=== PATIENT | male | born 1980 | race Caucasian/White ===

== ENCOUNTER 2016-08-21 20:49 | Emergency (ER) | payer SELFPAY ==
[2016-08-21] MEDS ORDERED: Benzonatate 100 MG CAP ONE (21:23)
[2016-08-21] MEDS ORDERED: Azithromycin 250 MG TAB ONE (21:23)
--- NOTE | 2016-08-21 21:41 | ERRECORD ---
[facility] EMERGENCY RECORD HPI COUGH (21:23 LLDO) CHIEF COMPLAINT: Patient presents for evaluation of cough, productive of yellow sputum, Patient presents for evaluation of one month or a bit more. headaches. no sore throat. low grade fever. no chest pain. HISTORIAN: History provided by patient. LOCATION: Symptoms are generalized. QUALITY: Denies tightness, Denies wheezing. SEVERITY: Maximum severity of symptoms moderate, Currently symptoms are moderate. TIME COURSE: Gradual onset of symptoms, There has been no change in the patient's symptoms over time, are constant. ASSOCIATED WITH: Associated symptoms reviewed, No associated chest pain, No associated chills, No associated diarrhea, No associated diaphoresis, Associated with dyspnea on exertion, No associated fever, No associated hyperventilation, No associated increased inhaler use, No associated nausea, No associated orthopnea, No associated palpitations, No associated paroxysmal nocturnal dyspnea, No associated peripheral edema, No associated pleuritic symptoms, No associated stridor, Associated with upper respiratory infection, No associated wheezing, No associated weakness. RELIEVED BY: Patient's condition relieved by rest. ROS CONSTITUTIONAL: Historian reports fatigue. (21:25 LLDO) EYES: Negative eye review of systems, Historian denies eye pain, denies eye redness, denies eye discharge. (21:30 LLDO) ENT: Negative ears, nose, throat review of systems, Historian denies otalgia, denies rhinorrhea, denies sinus pain, denies sore throat. (21:30 LLDO) CARDIOVASCULAR: Historian reports dyspnea on exertion. (21:25 LLDO) RESPIRATORY: Historian reports cough, reports sputum. described as thick, yellow, Historian denies stridor, denies wheezing. (21:25 LLDO) GI: Negative gastrointestinal review of systems, Historian denies abdominal pain, denies constipation, denies diarrhea, denies nausea, denies vomiting. (21:30 LLDO) MUSCULOSKELETAL: Historian reports myalgias. (21:25 LLDO) NEUROLOGIC: Historian denies confusion, denies dizziness, denies dysphasia, denies focal weakness, denies gait changes, reports headache, denies irritability. (21:25 LLDO) HEMO/LYMPHATIC: Normal hematologic/lymphatic system review, Historian denies abnormal blood clotting, denies gum bleeding, denies petechiae. (21:30 LLDO) ALLERGIC/IMMUNOLOGIC: Normal allergy/immunologic system review, Historian denies eczema, denies environmental allergies, denies food allergies. (21:30 LLDO) PSYCHIATRIC: Negative psychiatric review of systems, Historian &a-1R&a+25V*p+0X*[id number]*c202B*c15G*c2P*p-0X&a-25V&a+1R Name: Yayo Diaz Jr : 1980 M36 MedRec: [id number] AcctNum: [id number] Prepared: [facility] Aug 21, 2016 21:39 by Interface Page 1 of 4 pMD [facility] EMERGENCY RECORD denies alcohol abuse, denies anxiety, denies depression, denies drug abuse, denies hallucinations. (21:30 LLDO) NOTES: All systems reviewed, negative except as described above. (21:25 LLDO) PAST MEDICAL HISTORY MEDICAL HISTORY: No past medical history, Flu vaccine not up to date, Tetanus not up to date, Pneumococcal vaccine not up to date. (21:03 CJEF) MALE SURGICAL HISTORY: Patient has no surgical history. (21:03 CJEF) PSYCHIATRIC HISTORY: Psychiatric history includes, anxiety, bipolar disorder. (21:03 CJEF) SOCIAL HISTORY: Patient drinks socially, every week, Patient denies drug use, Patient currently uses tobacco, smokes cigarettes, daily, Patient smokes 2 packs per day. (21:03 CJEF) NOTES: Nursing records reviewed, Agree with nursing records, Medication list reviewed. (21:30 LLDO) KNOWN ALLERGIES NKDA CURRENT MEDICATIONS (21:01 CJEF) None VITAL SIGNS VITAL SIGNS: Pulse: 79, Resp: 18, Temp: 97.3 (Tympanic), Pain: 7, O2 sat: 97 on Room Air, Time: 08/21/2016 20:58. (20:58 CJEF) BP: 113/78, Time: 08/21/2016 21:01. (21:01 CJEF) PHYSICAL EXAM CONSTITUTIONAL: Vital Signs Reviewed, Patient afebrile, Pulse normal, Blood pressure normal, Respiratory rate normal, Normal pulse oximetry, Patient appears, uncomfortable, Patient appears, in moderate pain distress, Patient alert and oriented to person, place and time, Nursing notes reviewed. (21:28 LLDO) HEAD: Head exam normal, Head exam included findings of head atraumatic, normocephalic. (21:30 LLDO) EYES: Eye exam normal, Eye exam included findings of eyelids normal to inspection, Pupils equally round and reactive to light, Extraocular muscles intact. (21:30 LLDO) ENT: ENT exam normal, Ear exam normal, Nose exam normal. (21:30 LLDO) NECK: Neck exam included findings of normal range of motion, Trachea midline, Thyroid normal, no meningeal signs, no cervical adenopathy. (21:28 LLDO) RESPIRATORY CHEST: Respiratory exam included findings of no respiratory distress, No wheezing, Rales present, Chest &a-1R&a+25V*p+0X*[id number]*c202B*c15G*c2P*p-0X&a-25V&a+1R Name: Yayo Diaz Jr : 1980 M36 MedRec: [id number] AcctNum: [id number] Prepared: [facility] Aug 21, 2016 21:39 by Interface Page 2 of 4 pMD [facility] EMERGENCY RECORD exam included findings of chest movement symmetrical, Chest expansion equal, no tenderness, RALES MOD AND SCATTERED. (21:28 LLDO) CARDIOVASCULAR: Cardiovascular exam included findings of heart rate regular rate and rhythm, Heart sounds normal. (21:28 LLDO) ABDOMEN MALE: Abdominal exam normal, Abdominal exam included findings of abdomen nontender, Bowel sounds normal, no peritoneal signs. (21:30 LLDO) BACK: Back exam normal, Back exam included findings of normal inspection, range of motion normal. (21:30 LLDO) UPPER EXTREMITY: Upper extremity exam normal, Upper extremity exam included findings of inspection normal, Range of motion normal. (21:30 LLDO) LOWER EXTREMITY: Lower extremity exam normal, Lower extremity exam included findings of inspection normal, Range of motion normal. (21:30 LLDO) NEURO: Neuro exam normal, Neuro exam findings include patient oriented to person, place and time, Speech normal, Booker coma scale 15. (21:30 LLDO) SKIN: Skin exam normal, Skin exam included findings of skin warm, dry, and normal in color, no rash. (21:30 LLDO) PSYCHIATRIC: Psychiatric exam normal, Psychiatric exam included findings of patient oriented to person place and time, Normal affect, Judgment normal. (21:30 LLDO) MEDICATION ADMINISTRATION SUMMARY Drug Name: Zithromax oral, Dose Ordered: 500 mg, Route: Oral, Status: Given, Time: 21:25 08/21/2016, Drug Name: Brianna Estes, Dose Ordered: 200 mg, Route: Oral, Status: Given, Time: 21:08/21/2016, Detailed record available in Medication Service section. PROBLEM LIST No recorded problems DIAGNOSIS (21:20 LLDO) FINAL: PRIMARY: Acute bronchitis. PRESCRIPTION (21:22 LLDO) ibuprofen: TABLET : 800 mg : ORAL : Quantity: 1 Unit: tab(s) Route: ORAL Schedule: 3 times a day Dispense: 60 Unit: tab(s) May substitute. Refills: 1 . NOTES: No Refills. Phenergan DM: SYRUP : : ORAL : Quantity: 1-2 Unit: teaspoon Route: ORAL Schedule: every 4 hours prn Dispense: 180 Unit: mL May substitute. Refills: No Refills . NOTES: ^s=No Refills No Refills. &a-1R&a+25V*p+0X*b2293D*c202B*c15G*c2P*p-0X&a-25V&a+1R Name: Yayo Diaz Jr : 1980 M36 MedRec: [id number] AcctNum: [id number] Prepared: [facility] Aug 21, 2016 21:39 by Interface Page 3 of 4 pMD [facility] EMERGENCY RECORD Zithromax Z-Laureano: CAPSULE (HARD, SOFT, ETC.) : 250 mg : ORAL : Quantity: * Unit: Route: ORAL Schedule: See Notes Dispense: 1PK May substitute. Refills: No Refills . NOTES: TAKE DIRECTED ON PACKAGE No Refills. DISPOSITION PATIENT: Disposition Type: Discharge, Disposition: *Discharge Home. (21:20 LLDO) Patient left the department. (21:36 [facility]) [place]: VIOLET=MELISSA Rapp, Nenita LLOYD=MD Vania, Nate &a-1R&a+25V*p+0X*[id number]*c202B*c15G*c2P*p-0X&a-25V&a+1R Name: Yayo Diaz Jr : 1980 M36 MedRec: [id number] AcctNum: [id number] Prepared: [facility] Aug 21, 2016 21:39 by Interface Page 4 of 4 pMD MTDD
--- NOTE | 2016-08-21 21:47 | PICIS ---
[facility] EMERGENCY RECORD TRIAGE (ThuAug 21, 2016 21:01 CJ) TRIAGE NOTES: PT REPORTS THAT X3 KIDS HAVE BRONCHITIS AND NOW PT THINKS HE HAS IT NOW TOO. PT REPORTS "LUNGS HURTING", NOSE SNIFFLING, AND COUGHING THAT STARTED APPROX X1 MONTH AGO. PT STATES THAT HE WAS BEING A "HARD ASS" AND DID NOT WANT TO COME TO THE ER. PT STATES IT CONTINUED AND NOW CAME FOR EVAL. (ThuAug 21, 2016 21:01 CJEF) PATIENT: NAME: Yayo Diaz Jr, AGE: 36, GENDER: male, : Thu1980, TIME OF GREET: ThuAug 21, 2016 20:50, PREFERRED LANGUAGE: Indonesian, ETHNICITY: Not or , ECODE BILLING MAP: [facility], SSN: [id number], Zip Code: [address], KG WEIGHT: 86.18, PHONE: , , , PERSON ID: [id number], PCP: NONE. (ThuAug 21, 2016 21:01 CJEF) COMPLAINT: COUGHING/FEVER/LUNGS HURT. (ThuAug 21, 2016 21:01 CJEF) ADMISSION: URGENCY: 4 Non Urgent, ADMISSION SOURCE: Home, TRANSPORT: Walk-in, BED: TRIAGE. (ThuAug 21, 2016 21:01 CJEF) ASSESSMENT: Assessment: COUGING, RUNNY NOSE, CONGESTION, BACK PAIN. (21:03 CJEF) PAIN: Patient complains of pain described as, Location UPPER BACK. (21:03 CJEF) IMMUNIZATIONS: Flu vaccine not up to date, Tetanus not up to date, Pneumococcal vaccine not up to date. (21:03 CJEF) SIRS SCORING: Heart Rate 55-109 (0), Temp range 96.8-101.1 (0), respiratory rate 12-24 (0), Mental Status altered: no (0), Infection or Suspected Infection: No. (21:03 CJEF) TRIAGE SCREENING: Patient denies suicidal ideation, Patient denies presence of domestic violence. (21:03 CJEF) PROVIDERS: TRIAGE NURSE: Nenita Rapp RN. (ThuAug 21, 2016 21:01 CJEF) VITAL SIGNS: Pulse 79, Resp 18, Temp 97.3, (Tympanic), Pain 7, O2 Sat 97, on Room Air, Time 08/21/2016 20:58. (20:58 CJEF) BP 113/78, Time 08/21/2016 21:01. (21:01 CJEF) KNOWN ALLERGIES NKDA CURRENT MEDICATIONS (21: EF) None VITAL SIGNS VITAL SIGNS: Pulse: 79, Resp: 18, Temp: 97.3 (Tympanic), Pain: 7, O2 sat: 97 on Room Air, Time: 08/21/2016 20:58. (20:58 CJEF) BP: 113/78, Time: 08/21/2016 21:01. (21: [facility]) NURSING ASSESSMENT: ENT (21:03 [facility]) CONSTITUTIONAL: Complex assessment performed, Patient arrives ambulatory, Gait steady, History obtained from patient, Patient &a-1R&a+25V*p+0X*[id number]*c202B*c15G*c2P*p-0X&a-25V&a+1R Name: Yayo Diaz Jr : 1980 M36 MedRec: [id number] AcctNum: [id number] Prepared: Brenda Aug 21, 2016 21:45 by Interface Page 1 of 7 pMD [facility] EMERGENCY RECORD appears comfortable, Patient cooperative, Patient alert, Oriented to person, place and time, Skin warm, Skin dry, Skin normal in color, Mucous membranes pink, Mucous membranes moist, Patient is well-groomed, PT REPORTS THAT X3 KIDS HAVE BRONCHITIS AND NOW PT THINKS HE HAS IT NOW TOO. PT REPORTS "LUNGS HURTING", NOSE SNIFFLING, AND COUGHING THAT STARTED APPROX X1 MONTH AGO. PT STATES THAT HE WAS BEING A "HARD ASS" AND DID NOT WANT TO COME TO THE ER. PT STATES IT CONTINUED AND NOW CAME FOR EVAL. PT REPORTS UPPER BACK PAIN. PAIN: aching pain, UPPER BACK, on a scale 0-10 patient rates pain as 7. ENT: Ear assessment findings include ear normal to inspection, Nasal assessment findings include nose normal to inspection, Discharge, thin, yellow, from bilateral nare, Mouth and throat assessment findings include mouth inspection normal, no associated fever. RESPIRATORY/CHEST: Breath sounds clear, Respiratory assessment findings include respiratory effort easy, Respirations regular, Conversing normally, Neck and chest exam findings include trachea midline, Chest expansion equal, Chest movement symmetrical, no signs of distress, Associated with cough, productive of, clear sputum, COUGING INDUCED VOMITING, no associated fever. NOTES: Patient tolerated procedure well. SAFETY: Side rails up, Cart/Stretcher in lowest position, Family at bedside, Call light within reach, Hospital ID band on. NURSING PROCEDURE: DISCHARGE NOTE (21:36 [facility]) DISCHARGE: Patient discharged to home, ambulating without assistance, driving self, unaccompanied, Summary of Care printed/ provided, Patient requested and was provided an electronic copy of Discharge Instructions, Transition record given to patient, Discharge instructions given to patient, Simple or moderate discharge teaching performed, Prescriptions given and instructions on side effects given, Medication reconciliation form given, Above person(s) verbalized understanding of discharge instructions and follow-up care, Patient treated and evaluated by physician. BELONGINGS: Belongings remain with patient. NOTES: Patient tolerated procedure well. SAFETY: Side rails up, Cart/Stretcher in lowest position, Family at bedside, Call light within reach, Hospital ID band on. NURSING PROCEDURE: NURSE NOTES (21:26 [facility]) NURSES NOTES: Patient in no apparent distress, Patient resting quietly, Notes: PT RESTING IN BED QUIETLY WITH NO DISTRESS NOTED. PT DENIES ANY NEEDS. MEDICATION ADMINISTRATION SUMMARY Drug Name: Zithromax oral, Dose Ordered: 500 mg, Route: Oral, Status: Given, Time: 21:25 08/21/2016, &a-1R&a+25V*p+0X*d3045P*c202B*c15G*c2P*p-0X&a-25V&a+1R Name: Yayo Diaz Jr : 1980 M36 MedRec: [id number] AcctNum: [id number] Prepared: Brenda Aug 21, 2016 21:45 by Interface Page 2 of 7 pMD [facility] EMERGENCY RECORD Drug Name: Brianna Estes, Dose Ordered: 200 mg, Route: Oral, Status: Given, Time: 21:25 08/21/2016, Detailed record available in Medication Service section. MEDICATION SERVICE (21:25 [facility]) Brianna Estes: Order: Brianna Estes (benzonatate) - Dose: 200 mg : Oral Schedule: Now Ordered by: Nate Caro MD Entered by: Nate Caro MD [facility] Aug 21, 2016 21:19 Documented as given by: Nenita Rapp RN [facility] Aug 21, 2016 21:25 Patient, Medication, Dose, Route and Time verified prior to administration. Amount given: 200mg, Site: Medication administered P.O., Mouth check performed after administration of medication, Patient appears Awake and alert- acceptable, Correct patient, time, route, dose and medication confirmed prior to administration, Patient advised of actions and side-effects prior to administration, Allergies confirmed and medications reviewed prior to administration, Patient tolerated procedure well, Patient in position of comfort, Side rails up, Cart in lowest position, Family at bedside. Zithromax oral: Order: Zithromax oral (azithromycin) - Dose: 500 mg : Oral Schedule: Now Ordered by: Nate Caro MD Entered by: Nate Caro MD [facility] Aug 21, 2016 21:19 Documented as given by: Nenita Rapp RN [facility] Aug 21, 2016 21:25 Patient, Medication, Dose, Route and Time verified prior to administration. Amount given: 500mg, Site: Medication administered P.O., Mouth check performed after administration of medication, Patient appears Awake and alert- acceptable, Correct patient, time, route, dose and medication confirmed prior to administration, Patient advised of actions and side-effects prior to administration, Allergies confirmed and medications reviewed prior to administration, Patient tolerated procedure well, Patient in position of comfort, Side rails up, Cart in lowest position, Family at bedside. HPI COUGH (21:23 [facility]LDO) CHIEF COMPLAINT: Patient presents for evaluation of cough, productive of yellow sputum, Patient presents for evaluation of one month or a bit more. headaches. no sore throat. low grade fever. no chest pain. HISTORIAN: History provided by patient. LOCATION: Symptoms are generalized. QUALITY: Denies tightness, Denies wheezing. SEVERITY: Maximum severity of symptoms moderate, Currently symptoms are moderate. TIME COURSE: Gradual onset of symptoms, There has been no change in the patient's symptoms over time, are constant. ASSOCIATED WITH: Associated symptoms &a-1R&a+25V*p+0X*k8836D*c202B*c15G*c2P*p-0X&a-25V&a+1R Name: [place] Jr, Yayo R : 1980 M36 MedRec: [id number] AcctNum: [id number] Prepared: Brenda Aug 21, 2016 21:45 by Interface Page 3 of 7 pMD [facility] EMERGENCY RECORD reviewed, No associated chest pain, No associated chills, No associated diarrhea, No associated diaphoresis, Associated with dyspnea on exertion, No associated fever, No associated hyperventilation, No associated increased inhaler use, No associated nausea, No associated orthopnea, No associated palpitations, No associated paroxysmal nocturnal dyspnea, No associated peripheral edema, No associated pleuritic symptoms, No associated stridor, Associated with upper respiratory infection, No associated wheezing, No associated weakness. RELIEVED BY: Patient's condition relieved by rest. ROS CONSTITUTIONAL: Historian reports fatigue. (21:25 LLDO) EYES: Negative eye review of systems, Historian denies eye pain, denies eye redness, denies eye discharge. (21:30 LLDO) ENT: Negative ears, nose, throat review of systems, Historian denies otalgia, denies rhinorrhea, denies sinus pain, denies sore throat. (21:30 LLDO) CARDIOVASCULAR: Historian reports dyspnea on exertion. (21:25 LLDO) RESPIRATORY: Historian reports cough, reports sputum. described as thick, yellow, Historian denies stridor, denies wheezing. (21:25 LLDO) GI: Negative gastrointestinal review of systems, Historian denies abdominal pain, denies constipation, denies diarrhea, denies nausea, denies vomiting. (21:30 LLDO) MUSCULOSKELETAL: Historian reports myalgias. (21:25 [facility]O) NEUROLOGIC: Historian denies confusion, denies dizziness, denies dysphasia, denies focal weakness, denies gait changes, reports headache, denies irritability. (21:25 LLDO) HEMO/LYMPHATIC: Normal hematologic/lymphatic system review, Historian denies abnormal blood clotting, denies gum bleeding, denies petechiae. (21:30 [facility]O) ALLERGIC/IMMUNOLOGIC: Normal allergy/immunologic system review, Historian denies eczema, denies environmental allergies, denies food allergies. (21:30 LLDO) PSYCHIATRIC: Negative psychiatric review of systems, Historian denies alcohol abuse, denies anxiety, denies depression, denies drug abuse, denies hallucinations. (21:30 LLDO) NOTES: All systems reviewed, negative except as described above. (21:25 LLDO) PAST MEDICAL HISTORY MEDICAL HISTORY: No past medical history, Flu vaccine not up to date, Tetanus not up to date, Pneumococcal vaccine not up to date. (21:03 CJEF) MALE SURGICAL HISTORY: Patient has no surgical history. (21:03 CJEF) PSYCHIATRIC HISTORY: Psychiatric history includes, &a-1R&a+25V*p+0X*g6054N*c202B*c15G*c2P*p-0X&a-25V&a+1R Name: Yayo Diaz Jr : 1980 M36 MedRec: [id number] AcctNum: [id number] Prepared: Brenda Aug 21, 2016 21:45 by Interface Page 4 of 7 pMD [facility] EMERGENCY RECORD anxiety, bipolar disorder. (21:03 CJEF) SOCIAL HISTORY: Patient drinks socially, every week, Patient denies drug use, Patient currently uses tobacco, smokes cigarettes, daily, Patient smokes 2 packs per day. (21:03 CJEF) NOTES: Nursing records reviewed, Agree with nursing records, Medication list reviewed. (21:30 L[facility]) PHYSICAL EXAM CONSTITUTIONAL: Vital Signs Reviewed, Patient afebrile, Pulse normal, Blood pressure normal, Respiratory rate normal, Normal pulse oximetry, Patient appears, uncomfortable, Patient appears, in moderate pain distress, Patient alert and oriented to person, place and time, Nursing notes reviewed. (21:28 LLDO) HEAD: Head exam normal, Head exam included findings of head atraumatic, normocephalic. (21:30 LLDO) EYES: Eye exam normal, Eye exam included findings of eyelids normal to inspection, Pupils equally round and reactive to light, Extraocular muscles intact. (21:30 LLDO) ENT: ENT exam normal, Ear exam normal, Nose exam normal. (21:30 LLDO) NECK: Neck exam included findings of normal range of motion, Trachea midline, Thyroid normal, no meningeal signs, no cervical adenopathy. (21:28 LLDO) RESPIRATORY CHEST: Respiratory exam included findings of no respiratory distress, No wheezing, Rales present, Chest exam included findings of chest movement symmetrical, Chest expansion equal, no tenderness, RALES MOD AND SCATTERED. (21:28 LLDO) CARDIOVASCULAR: Cardiovascular exam included findings of heart rate regular rate and rhythm, Heart sounds normal. (21:28 LLDO) ABDOMEN MALE: Abdominal exam normal, Abdominal exam included findings of abdomen nontender, Bowel sounds normal, no peritoneal signs. (21:30 LLDO) BACK: Back exam normal, Back exam included findings of normal inspection, range of motion normal. (21:30 LLDO) UPPER EXTREMITY: Upper extremity exam normal, Upper extremity exam included findings of inspection normal, Range of motion normal. (21:30 LLDO) LOWER EXTREMITY: Lower extremity exam normal, Lower extremity exam included findings of inspection normal, Range of motion normal. (21:30 LLDO) NEURO: Neuro exam normal, Neuro exam findings include patient oriented to person, place and time, Speech normal, [place] coma scale 15. (21:30 LLDO) SKIN: Skin exam normal, Skin exam included findings of skin warm, dry, and normal in color, no rash. (21:30 LLDO) PSYCHIATRIC: Psychiatric exam normal, Psychiatric exam included findings of patient oriented to person place and time, Normal affect, Judgment normal. (21:30 LLDO) &a-1R&a+25V*p+0X*j5290X*c202B*c15G*c2P*p-0X&a-25V&a+1R Name: Yayo Diaz Jr : 1980 M36 MedRec: [id number] AcctNum: [id number] Prepared: ThuAug 21, 2016 21:45 by Interface Page 5 of 7 D [facility] EMERGENCY RECORD EVENTS TRANSFER: Triage to Emergency Triage. (ThuAug 21, 2016 21:01 [facility]) Emergency Triage to Main ED -03. (21:03 CJ) Removed from Emergency Main ED -03. (21:36 CJEF) PROBLEM LIST No recorded problems DIAGNOSIS (21:20 LLDO) FINAL: PRIMARY: Acute bronchitis. DISPOSITION PATIENT: Disposition Type: Discharge, Disposition: *Discharge Home. (21:20 LLDO) Patient left the department. (21:36 CJ) INSTRUCTION (21:23 LLDO) FOLLOWUP: Follow up with Primary Care Physician as needed. SPECIAL: Follow-up with your PCP. PRESCRIPTION (21:22 [facility]LDO) ibuprofen: TABLET : 800 mg : ORAL : Quantity: 1 Unit: tab(s) Route: ORAL Schedule: 3 times a day Dispense: 60 Unit: tab(s) May substitute. Refills: 1 . NOTES: No Refills. Phenergan DM: SYRUP : : ORAL : Quantity: 1-2 Unit: teaspoon Route: ORAL Schedule: every 4 hours prn Dispense: 180 Unit: mL May substitute. Refills: No Refills . NOTES: ^s=No Refills No Refills. Zithromax Z-Laureano: CAPSULE (HARD, SOFT, ETC.) : 250 mg : ORAL : Quantity: * Unit: Route: ORAL Schedule: See Notes Dispense: 1PK May substitute. Refills: No Refills . NOTES: TAKE DIRECTED ON PACKAGE No Refills. IMAGING (21:37 [facility]) *DISCHARGE INSTRUCTIONS RECEIPT: Image captured from scanner. *SUPPLY CHARGE SHEET: Image captured from scanner. ADMIN (21:33 [facility]) DIGITAL SIGNATURE: MD Vania, Nate. MD Vania, Nate. MD Vania, Nate. MD Caro Lloyd. &a-1R&a+25V*p+0X*m6851U*c202B*c15G*c2P*p-0X&a-25V&a+1R Name: Yayo Diaz Jr : 1980 [facility] [place] MedRec: [id number] AcctNum: [id number] Prepared: [facility] Aug 21, 2016 21:45 by Interface Page 6 of 7 pMD [facility] EMERGENCY RECORD MD Caro Lloyd. [place]: CJEF=MELISSA Rapp, Nenita LLDO=MD Caro Lloyd &a-1R&a+25V*p+0X*n4008H*c202B*c15G*c2P*p-0X&a-25V&a+1R Name: Yayo Diaz Jr : 1980 [facility] [place] MedRec: [id number] AcctNum: [id number] Prepared: ThuAug 21, 2016 21:45 by Interface Page 7 of 7 pMD [facility] MEDICATION RECONCILIATION You were seen in the Emergency Department on: ThuAug 21, 2016 KNOWN ALLERGIES NKDA MEDICATIONS GIVEN WHILE IN THE EMERGENCY DEPARTMENT Tessalon Perles (benzonatate) - Dose: 200 milligram(s) : Oral Zithromax oral (azithromycin) - Dose: 500 milligram(s) : Oral HOME MEDICATIONS None Notes from the emergency department Reviewed with patient PRESCRIPTIONS (3) Printed (3) ibuprofen : TABLET : 800 mg : ORAL Quantity: 1, Unit: tab(s), Route: ORAL, Schedule: 3 times a day, Dispense: 60 Unit: tab(s) Phenergan DM : SYRUP : : ORAL Quantity: 1-2, Unit: teaspoon, Route: ORAL, Schedule: every 4 hours prn, Dispense: 180 Unit: milliliter(s) &a-1R&a+25V*p+0X*d9035X*c202B*c15G*c2P*p-0X&a-25V&a+1R Name: Yayo Diaz Jr : 1980 6 MedRec: [id number] AcctNum: [id number] Prepared: ThuAug 21, 2016 21:45 by Interface pMD FLORENCIO
== END 2016-08-21 21:36 | disposition home or self-care (01) ==
LOC: MADERS 20:49
DX: J20.9 Acute bronchitis, unspecified (principal); F31.9 Bipolar disorder, unspecified; F17.210 Nicotine dependence, cigarettes, uncomplicated
CPT/HCPCS: 99283

== ENCOUNTER 2018-07-06 16:16 | Emergency (ER) | payer BC, SELFPAY ==
[2018-07-06] MEDS ORDERED: Dexamethasone 10 MG/ML VIAL ONE (16:58)
[2018-07-06] MEDS ORDERED: Ibuprofen 800 MG TAB ONE (16:58)
== END 2018-07-06 17:16 | disposition home or self-care (01) ==
LOC: MADERS 16:16
DX: J06.9 Acute upper respiratory infection, unspecified (principal); I10 Essential (primary) hypertension; F17.210 Nicotine dependence, cigarettes, uncomplicated
CPT/HCPCS: 96372; J1100

== ENCOUNTER 2019-05-13 11:43 | Emergency (ER) | payer BC ==
[2019-05-13] MEDS ORDERED: Rabies Vaccine Human 2.5 UNITS VIAL ONE (12:47)
[2019-05-13] MEDS ORDERED: Doxycycline 100 MG CAP ONE (13:08)
== END 2019-05-13 14:02 | disposition home or self-care (01) ==
LOC: MADERS 11:43
DX: S61.451A Open bite of right hand, initial encounter (principal); F41.9 Anxiety disorder, unspecified; F17.210 Nicotine dependence, cigarettes, uncomplicated; Z79.899 Other long term (current) drug therapy; W55.01XA Bitten by cat, initial encounter
CPT/HCPCS: 90376; 90471; 90675; 96372

== ENCOUNTER → 2019-05-16 | Day surgery (SDC) | payer BC ==
[~2019-05-16] MED LIST: Rabies Vaccine Human 2.5 UNITS VIAL ONE
== END ==
LOC: MADER/OP 11:42
PROVIDERS: ATTEND Emergency Medicine
DX: Z29.14 Encounter for prophylactic rabies immune globulin (principal)
CPT/HCPCS: 90675

== ENCOUNTER 2019-11-30 12:01 | Emergency (ER) | payer BC ==
[2019-11-30] MEDS ORDERED: Ibuprofen 800 MG TAB ONE (12:19)
[2019-11-30] MEDS ORDERED: Acetaminophen 500 MG TAB ONE (12:19)
--- NOTE | 2019-11-30 15:07 | RAD ---
RIGHT ANKLE 3 VIEWS: Date: 11/30/2019 HISTORY: Fall, right ankle pain. FINDINGS/IMPRESSION: The ankle mortise is maintained. No acute fracture or dislocation is identified. POS: BHANU
--- NOTE | 2019-11-30 15:34 | RAD ---
RIGHT FOOT THREE VIEWS: 11/30/19 HISTORY: Injury, right foot pain. FINDINGS/IMPRESSION: There is linear lucencies in the proximal metastases of the third and fourth metatarsals suspicious f or fractures. Clinical correlation is recommended. POS: BHANU
--- NOTE | 2019-11-30 15:34 | RAD ---
LEFT FOOT 3 VIEWS: HISTORY: Fall with injury. FINDINGS: Tarsals appear intact. The tarsometatarsal alignment is maintained. The metatarsals and phalanges appear intact. MTP joint is unremarkable. IMPRESSION: No acute fracture identified. POS: SJDI
--- NOTE | 2019-11-30 15:35 | RAD ---
EXAM: RIGHT KNEE FOUR VIEWS: 11/30/19 HISTORY: Anterior knee pain following injury from a fall. FINDINGS: No fracture, dislocation, or other significant acute osseous process. IMPRESSION: Unremarkable right knee. POS: C
== END 2019-11-30 13:35 | disposition home or self-care (01) ==
LOC: MADERS 12:01
DX: S92.331A Displaced fracture of third metatarsal bone, right foot, initial encounter for closed fracture (principal); F41.9 Anxiety disorder, unspecified; F17.210 Nicotine dependence, cigarettes, uncomplicated; V09.20XA Pedestrian injured in traffic accident involving unspecified motor vehicles, initial encounter

== ENCOUNTER 2019-12-20 23:26 | Emergency (ER) | payer BC ==
--- NOTE | 2019-12-21 07:51 | RAD ---
Exam:3 views right foot HISTORY: Trauma. Pain. Fracture. COMPARISON: 11/30/2019 FINDINGS: Persistent fracture lucency involving the base of the third and fourth metatarsals. There a ppears to be interval development of a lucency involving the base of the second metatarsal. Nonhealed fractures are suspected. There is persistent soft tissue swelling. Lisfranc alignment is ma intained. IMPRESSION: Nonhealed second through fourth proximal metatarsal fractures.
== END 2019-12-21 00:22 | disposition home or self-care (01) ==
LOC: MADERS 23:26
DX: S93.601A Unspecified sprain of right foot, initial encounter (principal); F41.9 Anxiety disorder, unspecified; F17.210 Nicotine dependence, cigarettes, uncomplicated; Z79.899 Other long term (current) drug therapy; W17.2XXA Fall into hole, initial encounter